=== PATIENT | male | born 1935 | race Caucasian/White ===

== ENCOUNTER 2017-11-17 07:14 | Day surgery (SDC) ==
[2017-11-17] MEDS: TETRACAINE 0.5% UNIT-DOSE OP PRN ×2 (08:35→09:25)
[2017-11-17] MEDS: CYCLOGYL 2% OPTH OP PRN ×3 (08:35→08:45)
[2017-11-17] MEDS: BETADINE OPTH PREP OP PRN ×2 (08:35→09:25)
[2017-11-17] MEDS ORDERED: DEX-MOXI-KETOR OPTH INJ 1/0.5/0.4 MG/ML IO ONE (08:48)
[2017-11-17] MEDS ORDERED: BRIMONIDINE TARTRATE 0.2% OPTH SOL OP PRN (08:48)
[2017-11-17] MEDS ORDERED: BSS WITH EPINEPHRINE OP ONE (08:48)
[2017-11-17] MEDS ORDERED: LIDOCAINE 1% 20 ML MDV ID STA (08:48)
[2017-11-17] MEDS ORDERED: ZOFRAN 4 MG/2 ML IVP ONE (08:48)
[2017-11-17] MEDS ORDERED: LIDOCAINE 1%/PHENYLEPHRINE 1.5% BSS (SURGERY) INTRAOCULA ONE (08:48)
[2017-11-17] MEDS ORDERED: SUBLIMAZE ONE (09:25)
[2017-11-17] MEDS ORDERED: VERSED ONE (09:25)
[2017-11-19 15:11] VITALS: BP 111/78
== END 2017-11-17 10:05 | disposition home or self-care (01) ==
LOC: SURG 07:14
PROVIDERS: ATTEND Ophthalmology
DX: H25.812 Combined forms of age-related cataract, left eye (principal)

== ENCOUNTER 2017-12-07 07:00 | Day surgery (SDC) ==
[2017-12-07] MEDS: TETRACAINE 0.5% UNIT-DOSE OP PRN ×3 (08:40→09:28)
[2017-12-07] MEDS: BETADINE OPTH PREP OP PRN ×2 (08:40→09:20)
[2017-12-07] MEDS: CYCLOGYL 2% OPTH OP PRN ×3 (08:41→08:51)
[2017-12-07] MEDS ORDERED: ZOFRAN 4 MG/2 ML IVP ONE (08:43)
[2017-12-07] MEDS ORDERED: LIDOCAINE 1% 20 ML MDV ID STA (08:43)
[2017-12-07] MEDS ORDERED: BRIMONIDINE TARTRATE 0.2% OPTH SOL OP PRN (08:43)
[2017-12-07 08:49] VITALS: TEMP 97.1
[2017-12-07] MEDS ORDERED: VERSED ONE (09:20)
[2017-12-07] MEDS: BSS WITH EPINEPHRINE OP ONE ×3 (09:26→09:31)
[2017-12-07] MEDS: LIDOCAINE 1%/PHENYLEPHRINE 1.5% BSS (SURGERY) INTRAOCULA ONE ×3 (09:26→09:31)
[2017-12-07] MEDS: DEX-MOXI-KETOR OPTH INJ 1/0.5/0.4 MG/ML IO ONE ×3 (09:26→09:31)
[2017-12-10 11:25] VITALS: BP 138/67
== END 2017-12-07 10:05 | disposition home or self-care (01) ==
LOC: SURG 07:00
PROVIDERS: ATTEND Ophthalmology
DX: H25.811 Combined forms of age-related cataract, right eye (principal)